=== PATIENT | male | born 1975 | race Caucasian/White ===

== ENCOUNTER 2023-01-22 06:04 | Emergency (ER) | payer SELFPAY ==
[2023-01-22] MEDS ORDERED: LORAZEPAM 1 MG TABLET ONE (06:36)
[2023-01-22] MEDS ORDERED: NA CHLORIDE 0.9% 1,000 ML ONE (06:36)
[2023-01-22 06:59] LABS: Urine Bacteria None Seen /HPF (<20); Urine Bilirubin NEGATIVE (Negative); Urine Blood Negative (Negative); Urine Clarity Clear (Clear); Urine Color Yellow (Yellow); Urine Glucose 4+ (Negative); Urine Mucus Slight /HPF (None Seen); Urine Protein TRACE (Negative); Urine RBC <5 /HPF (None Seen); Urine Urobilinogen Normal (Normal)
[2023-01-22 07:00] LABS: Barbiturates NEGATIVE (NEGATIVE); Benzodiazepines NEGATIVE (NEGATIVE); Cocaine NEGATIVE (NEGATIVE); METHAMPHETAM POSITIVE (NEGATIVE); Methadone NEGATIVE (NEGATIVE); Opiates NEGATIVE (NEGATIVE); Phencyclidine NEGATIVE (NEGATIVE); THC Cannibis POSITIVE (NEGATIVE)
[2023-01-22 07:33] LABS: Absolute Lymphocytes (CBC) 2.2 K/uL (0.7-4.9); Hematocrit 42.1 % (39.6-49.0); Lymphocytes % 19.9 % (15.3-44.8); MCV 86.5 fL (80-100); MPV 7.5 fL (7.6-11.3); RBC Red Blood Cell Count 4.87 M/uL (4.33-5.43)
[2023-01-22 07:38] LABS: White Blood Cell Scan OK (OK)
[2023-01-22 07:39] LABS: Blood Morphology Comment NOT SEEN (NOT SEEN); Platelet Estimate ADEQ
[2023-01-22 07:40] LABS: Protime INR 0.97
[2023-01-22 07:55] LABS: ALT/SGPT 17 U/L (16-61); AST/SGOT 12 U/L (15-37); Albumin 3.9 g/dL (3.4-5.0); Alkaline Phosphatase 91 U/L (45-117); BUN Blood Urea Nitrogen 15 mg/dL (7-18); Bicarbonate 26 mEq/L (21-32); Bilirubin Direct 0.1 mg/dL (0-0.2); Bilirubin Indirect, Calculated 0.3 mg/dL (0.2-0.8); Bilirubin Total 0.4 mg/dL (0.2-1.0); Glomerular Filtration Rate 77 ml/min (=/>90); Glucose Level 87 mg/dL (74-106); Potassium 3.4 mEq/L (3.5-5.1); Protein, Total 7.2 g/dL (6.4-8.2); Sodium Level 136 mEq/L (136-145)
--- NOTE | 2023-01-22 08:43 | ER ---
Nurse's Notes [facility] Name: Armando Govea Age: 47 yrs Sex: Male : 1975 Arrival Date: 01/22/2023 Time: 06:04 Bed 7 Private MD: Diagnosis: Adverse effect of amphetamines;Cannabis abuse Presentation: 01/22 06:08 Chief complaint: EMS states: Pt went to the PD stating that he needed help because he kd3 was seeing things and hearing voices. Pt states that he is inconsistent with his medications and as of recently, has not taken his psych meds for 2 days. He also reports taking Meth 2 days ago. Pt states he has never had hallucinations in the past before. He also is complaining of testicular pain and swelling and leg pain and swelling and is concerned that he may have and infection that is causing the hallucinations. Coronavirus screen: Vaccine status: Patient reports receiving the 2nd dose of the covid vaccine. Ebola Screen: No symptoms or risks identified at this time. Initial Sepsis Screen: Does the patient meet any 2 criteria? No. Patient's initial sepsis screen is negative. Does the patient have a suspected source of infection? No. Patient's initial sepsis screen is negative. Risk Assessment: Do you want to hurt yourself or someone else? Patient reports no desire to harm self or others. Onset of symptoms was January 22, 2023. 06:08 Method Of Arrival: EMS: [facility] kd3 06:08 Acuity: DORI 2 kd3 Triage Assessment: 06:12 General: Appears uncomfortable, Behavior is anxious. Pain: Complains of pain in groin. kd3 Neuro: Level of Consciousness is awake, alert, obeys commands, Oriented to person, place, time, situation. Historical: - Allergies: 06:12 PENICILLINS; kd3 - Immunization history:: Adult Immunizations unknown. - Social history:: Smoking status: Patient reports the use of cigarette tobacco products, smokes one-half pack cigarettes per day. - Family history:: not pertinent. Screenin:25 [facility] ED Fall Risk Assessment (Adult) History of falling in the last 3 months, kb3 including since admission No falls in past 3 months (0 pts) Confusion or Disorientation No (0 pts) Intoxicated or Sedated No (0 pts) Impaired Gait No (0 pts) Mobility Assist Device Used No (0 pt) Altered Elimination No (0 pt) Score/Fall Risk Level 0 - 2 = Low Risk Maintained a safe environment. Abuse screen: Denies threats or abuse. Denies injuries from another. Nutritional screening: No deficits noted. Tuberculosis screening: No symptoms or risk factors identified. Assessment: 06:25 General: Appears uncomfortable, Behavior is crying, Smells of alcohol. kb3 06:25 Pain: Complains of pain in groin. Neuro: Level of Consciousness is awake, alert, obeys kb3 commands, Oriented to person, place, time, situation. Cardiovascular: Patient's skin is warm and dry. Respiratory: Airway is patent Trachea midline Respiratory effort is even, unlabored, Respiratory pattern is regular, symmetrical. GI: No signs and/or symptoms were reported involving the gastrointestinal system. : Reports pain in bilateral testicle. 08:40 Reassessment: Pt uncooperative, refusing EKG. Dr. Gutiérrez aware. hb Vital Signs: 06:08 BP 140 / 97; Pulse 75; Resp 19; Pulse Ox 99% on R/A; Weight 86.18 kg; Height 6 ft. 0 kd3 in. ; 06:14 Temp 97.8(O); kd3 08:03 BP 105 / 72; Pulse 72; Resp 18; Pulse Ox 100% on R/A; ld1 06:08 Body Mass Index 25.77 (86.18 kg, 182.88 cm) kd3 ED Course: 06:05 Patient arrived in ED. as6 06:08 Sienna Contreras, RN is Primary Nurse. kd3 06:12 Triage completed. kd3 06:12 Oh Murray MD is Attending Physician. sp4 06:12 Arm band placed on right wrist. kd3 06:41 Initial lab(s) drawn, by dc, sent to lab. Inserted saline lock: 20 gauge in right ll3 antecubital area, using aseptic technique. Blood collected. 07:33 Patient has correct armband on for positive identification. Bed in low position. Call kb3 light in reach. Client placed on continuous cardiac and pulse oximetry monitoring. NIBP monitoring applied. 08:12 Attending Physician role handed off by Oh Murray MD ms3 08:12 Morgan Gutiérrez DO is Attending Physician. ms3 08:25 Primary Nurse role handed off by Sienna Contreras RN eb 08:41 Hayden Paulson DO is Referral Physician. ms3 09:18 No provider procedures requiring assistance completed. IV discontinued, intact, ld1 bleeding controlled, No redness/swelling at site. Administered Medications: 06:40 Drug: NS 0.9% IV 1000 ml Route: IV; Rate: 1 bolus; Site: right antecubital; ll3 07:23 Drug: LORazepam PO 2 mg Route: PO; kd3 Medication: 07:33 VIS not applicable for this client. kb3 Outcome: 08:43 Discharge ordered by . ms3 09:18 Discharged to home via wheelchair. ld1 09:18 Condition: stable 09:18 Discharge instructions given to patient, Instructed on discharge instructions, follow up and referral plans. Demonstrated understanding of instructions, follow-up care. 09:18 Patient left the ED. ld1 Signatures: Valorie Morris, RN ISAURO Lucille De Guzman Marcus, DO DO ms3 Eusebia Gutiérrez RN RN ld1 Cas Nguyen RN RN as6 Ryan Alicia RN RN 3 Sienna Contreras RN RN kd3 Gina Jaffe RN RN ana3 Oh Murray MD MD sp4 Corrections: (The following items were deleted from the chart) 06:12 06:12 Allergies: No Known Allergies; kd3 kd3 07:33 06:25 General: Appears uncomfortable, Behavior is crying, kb3 kb3
--- NOTE | 2023-01-22 08:43 | EDPHYS ---
Physician Documentation [facility] Name: Armando Govea Age: 47 yrs Sex: Male : 1975 Arrival Date: 01/22/2023 Time: 06:04 Bed 7 Private MD: ED Physician Morgan Gutiérrez HPI: 01/22 06:13 This 47 yrs old Male presents to ER via EMS with complaints of Hallucinations sp4 . 06:21 47-year-old male presents with EMS for visual and auditory hallucinations as a primary sp4 complaint. . 06:22 Patient states he did methamphetamines 2 days ago via pipe and also had marijuana in sp4 the last 24-hour. Patient reports he is not drinking any alcohol. He states he should be on lithium and other psychiatric meds but has not taken any in a while . Patient states that he is social financial and other problems. . Patient complained of associated testicular pain and bilateral lower extremity swelling. . Historical: - Allergies: 06:12 PENICILLINS; kd3 - Immunization history:: Adult Immunizations unknown. - Social history:: Smoking status: Patient reports the use of cigarette tobacco products, smokes one-half pack cigarettes per day. - Family history:: not pertinent. ROS: 06:22 Constitutional: Negative for fever, chills, and weight loss, positive for feeling sp4 unwell overall Eyes: Negative for injury, pain, redness, and discharge, ENT: Negative for injury, pain, and discharge, Neck: Negative for injury, pain, and swelling, : Negative for injury, bleeding, discharge, positive for complaint of testicular swelling MS/Extremity: Negative for injury and deformity, positive for bilateral lower extremity swelling 06:22 Psych: Positive for depression, anxiety, visual and auditory hallucinations, suicidal thoughts. 06:22 All other systems are negative. Exam: 06:22 Constitutional: This is a well developed, well nourished patient who is awake, alert, sp4 positive for emotional upset, tearful on exam, appears anxious Head/Face: Normocephalic, atraumatic. Eyes: Pupils equal round and reactive to light, extra-ocular motions intact. Lids and lashes normal. Conjunctiva and sclera are not injected. Cornea within normal limits. Periorbital areas with no swelling, redness, or edema. ENT: Nares patent. No nasal discharge, no septal abnormalities noted. Tympanic membranes are normal and external auditory canals are clear. Oropharynx with no redness, swelling, or masses, exudates, or evidence of obstruction, uvula midline. Mucous membranes moist. Neck: Trachea midline, no thyromegaly or masses palpated, and no cervical lymphadenopathy. Supple, full range of motion without nuchal rigidity, or vertebral point tenderness. Chest/axilla: Normal chest wall appearance and motion. Nontender with no deformity. No lesions are appreciated. Cardiovascular: Regular rate and rhythm with a normal S1 and S2. No gallops, murmurs, or rubs. Normal PMI, no JVD. No pulse deficits. Respiratory: Lungs have equal breath sounds bilaterally, clear to auscultation and percussion. No rales, rhonchi or wheezes noted. No increased work of breathing, no retractions or nasal flaring. Abdomen/GI: Soft, non-tender, with normal bowel sounds. No distension or tympany. No guarding or rebound. No evidence of tenderness throughout. Back: No spinal tenderness. No costovertebral tenderness. Male : Normal genitalia with no discharge or lesions. Skin: Warm, dry with normal turgor. Normal color with no rashes, no lesions, and no evidence of cellulitis. Patient is heavily suntanned MS/ Extremity: Pulses equal, no cyanosis. Neurovascular intact. Full, normal range of motion. Neuro: Awake and alert, GCS 15, oriented to person, place, time, and situation. Cranial nerves II-XII grossly intact. Motor strength 5/5 in all extremities. Sensory grossly intact. Psych: Awake, alert, with orientation to person, place , positive for emotional upset, tearfulness, positive for report of auditory visual hallucinations, positive for suicidal thoughts 06:33 : Exam negative for Normal descended testicles, no signs of testicular mass, no sp4 lymphadenopathy, no inguinal hernia, circumcised male, no rashes or lesions, there is right testicular granula sebaceous cyst based on patient's reported chronic. Overall normal exam. Vital Signs: 06:08 BP 140 / 97; Pulse 75; Resp 19; Pulse Ox 99% on R/A; Weight 86.18 kg; Height 6 ft. 0 kd3 in. ; 06:14 Temp 97.8(O); kd3 08:03 BP 105 / 72; Pulse 72; Resp 18; Pulse Ox 100% on R/A; ld1 06:08 Body Mass Index 25.77 (86.18 kg, 182.88 cm) kd3 MDM: 06:56 Patient medically screened. sp4 08:43 Differential Diagnosis Substance abuse vs Psych disorder. Data reviewed: vital signs, ms3 nurses notes, and as a result, I will discharge patient. I considered the following discharge prescriptions or medication management in the emergency department Medications were administered in the Emergency Department. See MAR. Care significantly affected by the following Social Determinants of Health: Poor access to healthcare and/or lack of insurance. Counseling: I had a detailed discussion with the patient and/or guardian regarding: the historical points, exam findings, and any diagnostic results supporting the discharge/admit diagnosis, lab results, the need for outpatient follow up, to return to the emergency department if symptoms worsen or persist or if there are any questions or concerns that arise at home, smoking cessation. Response to treatment: the patient's symptoms have markedly improved after treatment, and as a result, I will discharge patient. Special discussion: I discussed with the patient/guardian in detail that at this point there is no indication for admission to the hospital. It is understood, however, that if the symptoms persist or worsen the patient needs to return immediately for re-evaluation. 01/22 06:21 Order name: Acetaminophen; Complete Time: 08:12 01/22 06:21 Order name: Basic Metabolic Panel; Complete Time: 08:12 01/22 06:21 Order name: CBC with Diff; Complete Time: 08:12 01/22 06:21 Order name: ETOH Level; Complete Time: 08:12 01/22 06:21 Order name: Hepatic Function; Complete Time: 08:12 01/22 06:21 Order name: PT-INR; Complete Time: 08:12 01/22 06:21 Order name: Ptt, Activated; Complete Time: 08:12 01/22 06:21 Order name: Salicylate; Complete Time: 08:12 01/22 06:21 Order name: Urinalysis w/ reflexes; Complete Time: 08:12 01/22 06:21 Order name: Urine Drug Screen; Complete Time: 08:12 01/22 07:39 Order name: CBC Smear Scan; Complete Time: 08:12 EDMS 01/22 06:21 Order name: EKG; Complete Time: 06:21 sp4 01/22 06:21 Order name: IV Saline Lock; Complete Time: 06:40 sp4 01/22 06:21 Order name: Labs collected and sent; Complete Time: 06:40 sp4 01/22 06:21 Order name: Suicide Precautions; Complete Time: 08:40 sp4 01/22 06:21 Order name: Suicide Screening ([place]); Complete Time: 08:40 sp4 01/22 06:46 Order name: Labs - recollect needed: recollect all labs; Complete Time: 07:24 eb Administered Medications: 06:40 Drug: NS 0.9% IV 1000 ml Route: IV; Rate: 1 bolus; Site: right antecubital; 3 07:23 Drug: LORazepam PO 2 mg Route: PO; kd3 Disposition Summary: 01/22/23 08:43 Discharge Ordered Location: Home ms3 Condition: Stable ms3 Diagnosis - Adverse effect of amphetamines ms3 - Cannabis abuse ms3 Followup: ms3 - With: Hayden Paulson DO - When: 2 - 3 days - Reason: Recheck today's complaints Discharge Instructions: - Discharge Summary Sheet ms3 - Amphetamines Use Disorder ms3 - Cannabis Use Disorder ms3 - Substance Use Disorder ms3 Forms: - Medication Reconciliation Form ms3 - Thank You Letter ms3 - Antibiotic Education ms3 - Prescription Opioid Use ms3 - [email or web address] ms3 Signatures: Dispatcher [employer] EDMS Lucille De Guzman eb Morgan Gutiérrez DO DO ms3 Ryan Alicia RN RN iván3 Sienna Contreras RN RN kd3 Oh Murray MD MD sp4 Corrections: (The following items were deleted from the chart) 06:12 06:12 Allergies: No Known Allergies; kd3 kd3
[2023-01-22 09:32] VITALS: TEMP 97.8
[2023-01-22 09:33] VITALS: BP 105/72; O2SAT 100
== END 2023-01-22 09:18 | disposition home or self-care (01) ==
LOC: ER 06:04
DX: F12.10 Cannabis abuse, uncomplicated (principal); T43.625A Adverse effect of amphetamines, initial encounter
CPT/HCPCS: 36415; 80048; 80076; 80143; 80179; 80307; 81001; 82077; 85025; 85610; 85730; 99284; J7030